=== PATIENT | female | born 1975 | race Caucasian/White ===

== ENCOUNTER → 2016-04-13 | Outpatient (CLI) | payer MEDICAID ==
[~2016-04-13] MED LIST: BACTRIM DS 8001 TA1 PO; CEPHALEXIN500 M1 PO; HYDROCODONE BIT1 T11 PO; IRON325 M1 PO; MEDROL DOSEPAK4 MG PO; MOTRIN800 MG PO; MULTIPLE VITAMI1 CAP PO; NAPROSYN500 MG PO; NO DAILY MEDS; OMEPRAZOLE40 MG PO; PYRIDIUM200 M1 PO; ULTRAM50 MG PO; VITAMIN B1250 MCG PO; VITAMIN C60 MG PO; VITAMIN D1000 IU PO; ZOVIRAX800 MG PO
[2016-04-13 11:02] LABS: HEMATOCRIT 37.3 % (37.0-47.0); HEMOGLOBIN 11.8 g/dl (12.0-16.0); MEAN CELL VOLUME 82.5 fl (81.0-99.0); MEAN CORPUSCULAR HGB 26.1 pg (27.0-31.0); MEAN CORPUSCULAR HGB CONC 31.6 g/dl (33.0-37.0); MEAN PLATELET VOLUME 9.4 fl (9.6-12.3); RED BLOOD COUNT 4.52 10*6/uL (4.10-5.10); RED CELL DISTRI WIDTH 12.8 % (0-14.5); WHITE BLOOD COUNT 8.3 10*3/uL (4.8-10.8)
[2016-04-13 11:10] LABS: CHOLESTEROL 180 mg/dL (<200); HDL CHOLESTEROL 49 mg/dl (40-60); IRON 35 ug/dL (50-170); IRON SATURATION 10 %; LDL CHOLESTEROL 110 mg/dL (9-159); TRIGLYCERIDES 105 mg/dl (<150); UIBC 296 ug/dL (110-365); VLDL CHOLESTEROL 21 mg/dL (6-40)
[2016-04-13 11:11] LABS: ALBUMIN 3.8 gm/dl (3.1-4.5); ALKALINE PHOSPHATASE 67 U/L (45-117); BILIRUBIN, TOTAL 0.3 mg/dl (0.2-1.0); BUN 11 mg/dl (7-24); CARBON DIOXIDE 26 mmol/L (21-32); CHLORIDE 109 mmol/L (98-107); EST GLOM FILT AFRICAN AMERICAN > 60 ml/min; GLUCOSE 92 mg/dL (65-99); SGOT/AST 6 IU/L (3-35); SGPT/ALT 17 U/L (12-78); SODIUM 143 mmol/L (136-145); TOTAL PROTEIN 7.6 gm/dL (6.4-8.2)
[2016-04-14 15:10] LABS: VITAMIN D, 25-HYDROXY 23.9 ng/mL (30-100)
== END | disposition home or self-care (01) ==
LOC: LAB 10:20
PROVIDERS: Family Medicine
DX: E78.00 Pure hypercholesterolemia, unspecified (principal); E55.9 Vitamin D deficiency, unspecified; R53.83 Other fatigue

== ENCOUNTER → 2016-05-05 | Outpatient (CLI) | payer MEDICAID | LOC: MAMMO 11:11 | DX: Z12.31 Encounter for screening mammogram for malignant neoplasm of breast (principal); Z01.419 Encounter for gynecological examination (general) (routine) without abnormal findings; N92.0 Excessive and frequent menstruation with regular cycle ==

== ENCOUNTER → 2018-12-05 | Outpatient (CLI) | payer OTHER ==
[2018-12-05 18:36] LABS: HEMATOCRIT 42.9 % (37.0-47.0); HEMOGLOBIN 14.5 g/dl (12.0-16.0); MEAN CELL VOLUME 84.8 fl (81.0-99.0); MEAN CORPUSCULAR HGB 28.7 pg (27.0-31.0); MEAN CORPUSCULAR HGB CONC 33.8 g/dl (33.0-37.0); MEAN PLATELET VOLUME 9.6 fl (9.6-12.3); RED BLOOD COUNT 5.06 10*6/uL (4.10-5.10); WHITE BLOOD COUNT 9.9 10*3/uL (4.8-10.8)
[2018-12-05 18:52] LABS: ALKALINE PHOSPHATASE 73 U/L (45-117); BUN 12 mg/dl (7-24); CHLORIDE 107 mmol/L (98-107); CHOLESTEROL 202 mg/dL (<200); CREATININE 0.81 mg/dL (0.55-1.02); HDL CHOLESTEROL 50 mg/dl (40-60); LDL CHOLESTEROL 110 mg/dL (9-159); SGOT/AST 14 IU/L (3-35); SGPT/ALT 25 U/L (12-78); SODIUM 140 mmol/L (136-145); TOTAL PROTEIN 7.8 gm/dL (6.4-8.2); TRIGLYCERIDES 212 mg/dl (<150); VLDL CHOLESTEROL 42 mg/dL (6-40)
[2018-12-05 19:01] LABS: BETA-HCG, QUANT < 1.0 mIU/mL (1-3)
[2018-12-07 00:05] LABS: TESTOSTERONE FREE, (DIRECT) 0.7 pg/mL (0.0-4.2)
== END | disposition home or self-care (01) ==
LOC: LAB 17:56
PROVIDERS: Family Medicine
DX: E78.00 Pure hypercholesterolemia, unspecified (principal); G47.00 Insomnia, unspecified

== ENCOUNTER → 2019-01-15 | Outpatient (CLI) | payer OTHER ==
[2019-01-15 08:21] LABS: BASO # 0.1 10*3/uL (0.0-0.1); BASO % 0.6 % (0.0-1.0); EOS # 0.1 10*3/uL (0.0-0.4); EOS % 1.2 % (1.0-4.0); HEMATOCRIT 44.9 % (37.0-47.0); HEMOGLOBIN 14.7 g/dl (12.0-16.0); LYMPH # 2.3 10*3/uL (1.3-4.4); LYMPH % 28.6 % (27.0-41.0); MEAN CELL VOLUME 85.7 fl (81.0-99.0); MEAN CORPUSCULAR HGB 28.1 pg (27.0-31.0); MEAN CORPUSCULAR HGB CONC 32.7 g/dl (33.0-37.0); MEAN PLATELET VOLUME 9.2 fl (9.6-12.3); MONO # 0.6 10*3/uL (0.1-1.0); MONO % 7.5 % (3.0-9.0); NEUT % 61.9 % (47.0-73.0); PLATELET COUNT AUTOMATED 385 10*3/uL (130-400); RED BLOOD COUNT 5.24 10*6/uL (4.10-5.10); RED CELL DISTRI WIDTH 12.6 % (0-14.5); WHITE BLOOD COUNT 8.2 10*3/uL (4.8-10.8)
[2019-01-15 08:50] LABS: BUN 10 mg/dl (7-24); CHLORIDE 105 mmol/L (98-107); CREATININE 0.83 mg/dL (0.55-1.02); POTASSIUM 3.8 mmol/L (3.5-5.1); SGOT/AST 16 IU/L (3-35); SGPT/ALT 25 U/L (12-78); SODIUM 137 mmol/L (136-145)
[2019-01-15 09:00] LABS: ALKALINE PHOSPHATASE 75 U/L (45-117); TOTAL PROTEIN 7.9 gm/dL (6.4-8.2)
[2019-01-16 06:07] LABS: DHEA SULFATE 170.2 ug/dL (57.3-279.2); FOLLICLE STIMULATING HORMONE 9.5 mIU/mL (.); LUTEINIZING HORMONE 004283 4.8 mIU/mL (.); PROLACTIN 004465 10.2 ng/mL (4.8-23.3)
[2019-01-16 20:09] LABS: TESTOSTERONE FREE, (DIRECT) 1.8 pg/mL (0.0-4.2)
== END | disposition home or self-care (01) ==
LOC: LAB 07:57
PROVIDERS: Nurse Practitioner Women's Health
DX: Z13.1 Encounter for screening for diabetes mellitus (principal); N93.9 Abnormal uterine and vaginal bleeding, unspecified; R53.83 Other fatigue

== ENCOUNTER → 2019-02-02 | Outpatient (CLI) | payer OTHER | END | disposition home or self-care (01) | LOC: US 09:42 | DX: N83.202 Unspecified ovarian cyst, left side (principal); N93.9 Abnormal uterine and vaginal bleeding, unspecified ==

== ENCOUNTER → 2019-03-19 | Outpatient (CLI) | payer OTHER | END | disposition home or self-care (01) | LOC: US 10:34 | DX: D25.9 Leiomyoma of uterus, unspecified (principal); N83.291 Other ovarian cyst, right side; N93.9 Abnormal uterine and vaginal bleeding, unspecified ==

== ENCOUNTER → 2019-11-08 | Outpatient (CLI) | payer OTHER ==
[~2019-11-08] MED LIST changes: +IBU800 MG PO
== END | disposition home or self-care (01) ==
LOC: LAB 13:48
DX: N93.9 Abnormal uterine and vaginal bleeding, unspecified (principal)

== ENCOUNTER → 2019-11-08 | Outpatient (CLI) | payer OTHER | END | disposition home or self-care (01) | LOC: COVID19 04:38 | DX: Z03.818 Encounter for observation for suspected exposure to other biological agents ruled out (principal) ==

== ENCOUNTER → 2019-11-13 | Day surgery (SDC) | payer OTHER ==
[2019-11-08 14:32] VITALS: BP 111/73
[~2019-11-13] VITALS: Ht 165.1 cm; Wt 99.8 kg
[2019-11-13 07:04] VITALS: BP 103/67
[2019-11-13 08:28] VITALS: BP 111/64
[2019-11-13 08:42] VITALS: BP 125/72
[2019-11-13 09:01] VITALS: BP 111/57
== END | disposition home or self-care (01) ==
LOC: SDC 11-08 14:00
DX: N93.9 Abnormal uterine and vaginal bleeding, unspecified (principal); N88.2 Stricture and stenosis of cervix uteri; K21.9 Gastro-esophageal reflux disease without esophagitis; Z98.890 Other specified postprocedural states; Z79.899 Other long term (current) drug therapy

== ENCOUNTER → 2020-09-19 | Outpatient (CLI) | payer OTHER | END | disposition home or self-care (01) | LOC: RAD 10:15 | PROVIDERS: ATTEND Chiropractor Orthopedic | DX: M50.30 Other cervical disc degeneration, unspecified cervical region (principal); M85.80 Other specified disorders of bone density and structure, unspecified site; M48.02 Spinal stenosis, cervical region; M47.812 Spondylosis without myelopathy or radiculopathy, cervical region ==

== ENCOUNTER 2021-09-03 19:07 | Emergency (ER) | payer OTHER ==
[~2021-09-03] VITALS: Ht 165.1 cm; Wt 95.3 kg
[2021-09-03 19:36] VITALS: BP 124/72
== END 2021-09-03 20:42 | disposition home or self-care (01) ==
LOC: ED 19:07
DX: S80.11XA Contusion of right lower leg, initial encounter (principal); Z98.890 Other specified postprocedural states; Z90.49 Acquired absence of other specified parts of digestive tract; Z98.51 Tubal ligation status; W22.8XXA Striking against or struck by other objects, initial encounter; Y93.89 Activity, other specified; Y92.89 Other specified places as the place of occurrence of the external cause; Y99.9 Unspecified external cause status